=== PATIENT | male | born 1965 | race African-American/Black ===

== ENCOUNTER 2018-11-15 14:48 | Emergency (ER) | payer OTHER, SELFPAY ==
[2018-11-15] MEDS ORDERED: Acetaminophen 325 MG TAB ONE (17:01)
--- NOTE | 2018-11-15 17:16 | RAD ---
PA VIEW OF THE CHEST WITH 3 VIEWS OF THE LEFT CHEST WALL: INDICATION: Left-sided rib pain last night after laying on the left side. FINDINGS: There are nondisplaced lateral left 8th and 9th rib fractures. There is a suspected nondisplaced lef t lateral 10th rib fracture. There is healed fracture deformity involving the posterior left 11th, 1 0th, and 9th ribs. There are healing rib fractures involving the anterior 3rd through 6th ribs anter olaterally. The left lung demonstrates some mild left basilar atelectasis. No definite contusion or pneumothorax is evident. There is mild right basilar atelectasis also present. Heart size is karl l. IMPRESSION: 1. Nondisplaced acute anterolateral left 8th, 9th, and 10th rib fractures. Healing rib deformities involving the anterolateral left 3rd through 6th ribs. There is healed fracture deformity involving the posterolateral left 9th through 11th ribs. 2. Bibasilar atelectasis. POS: [facility]
== END 2018-11-15 17:32 | disposition home or self-care (01) ==
LOC: ERS 14:48
DX: S22.42XA Multiple fractures of ribs, left side, initial encounter for closed fracture (principal); W19.XXXA Unspecified fall, initial encounter

== ENCOUNTER 2021-02-15 23:28 | Emergency (ER) | payer OTHER, MEDICAID | END 2021-02-16 06:20 | disposition home or self-care (01) | LOC: ERS 23:28 | DX: Z04.3 Encounter for examination and observation following other accident (principal) | CPT/HCPCS: 70450; 72125 ==

== ENCOUNTER 2021-06-20 10:11 | Day surgery (SDC) | payer MEDICAID ==
[2021-06-19 09:20] VITALS: BMI 22.2
[2021-06-20] MEDS ORDERED: Fentanyl 100 MCG/2 ML VIAL ONE (11:50)
[2021-06-20] MEDS ORDERED: ceFAZolin 2 GM/DEX 5% 100 ML BAG ONE (12:13)
[2021-06-20] MEDS ORDERED: Ampicillin 2 GM VIAL ONE (12:13)
[2021-06-20] MEDS ORDERED: PROPOFOL 200 MG/20 ML VIAL ONE (12:27)
[2021-06-20] MEDS ORDERED: Ondansetron PF 4 MG/2 ML Vial ONE (12:27)
[2021-06-20] MEDS ORDERED: Glycopyrrolate 0.2 MG/ML 5 ML SYRINGE ONE (12:27)
[2021-06-20] MEDS ORDERED: Rocuronium Bromide 10 MG/ML (10ML VIAL) ONE (12:27)
== END 2021-06-20 15:45 | disposition home or self-care (01) ==
LOC: SDC 10:11
PROVIDERS: ATTEND Orthopaedic Surgery
PROC: 0YP90YZ Removal of Other Device from Right Lower Extremity, Open Approach (ICD-10-PCS; principal; 2021-06-20)
DX: S82.891D Other fracture of right lower leg, subsequent encounter for closed fracture with routine healing (principal); Z79.01 Long term (current) use of anticoagulants; Z79.899 Other long term (current) drug therapy
CPT/HCPCS: 76000; 87070; 87077; 87186; 87205; J0290; J2405; J2704; J3010

== ENCOUNTER 2021-08-24 19:20 | Inpatient (IN) | payer MEDICAID, OTHER ==
[2021-08-24 19:43] LABS: #Eosinphils 0.2 thou/uL (0.0-0.7); #Lymphocytes 1.8 thou/uL (1.20-3.40); #Monocytes 1.6 thou/uL (0.11-0.59); #Neutrophils 8.7 thou/uL (1.40-6.50); %Basophils 0.1 % (0.0-1.0); %Eosinophils 1.5 % (0.0-10.0); %Lymphocytes 14.3 % (21.0-51.0); %Monocytes 13.2 % (0.0-10.0); %Neutrophils 70.9 % (42.0-75.0); Mean Corpuscular HGB CONC 34.1 g/dL (32.0-36.0); Mean Corpuscular Hemoglobin 31.5 pg (27.0-31.0); Mean Corpuscular Volume 92.5 fL (78.0-98.0); Platelet Count 230 thou/uL (130-400); RBC Distribution Width 13.3 % (11.5-14.5); Red Blood Cell (RBC) Count 4.11 mill/uL (4.70-6.10); White Blood Cell (WBC) Count 12.3 thou/uL (4.8-10.8)
[2021-08-24] MEDS ORDERED: Vancomycin 1 GM/200 ML BAG ONE (19:47)
[2021-08-24] MEDS ORDERED: Acetaminophen 650 MG Suppository ONE (19:48)
[2021-08-24 19:55] LABS: INR-International Normal Ratio 1.3; Prothrombin Time 16.4 sec (12.0-14.7)
[2021-08-24 19:56] LABS: ALT (SGPT) 34 U/L (8-55); AST (SGOT) 24 U/L (5-34); Albumin 3.9 g/dL (3.5-5.0); Alkaline Phosphatase 117 U/L (40-110); Anion Gap 13 mmol/L (10-20); BUN (Urea Nitrogen) 16 mg/dL (8.4-25.7); Bilirubin, Total 0.6 mg/dL (0.2-1.2); Calc. Creatinine Clearance 0 mL/min (70-130); Calcium 9.9 mg/dL (7.8-10.44); Carbon Dioxide 29 mmol/L (22-29); Chloride 105 mmol/L (98-107); Globulin 3.8 g/dL (2.4-3.5); Glucose 95 mg/dL (70-105); Potassium 3.8 mmol/L (3.5-5.1); Protein, Total 7.7 g/dL (6.0-8.3); Sodium 143 mmol/L (136-145)
[2021-08-24 20:00] LABS: Bilirubin Negative (Negative); Blood, Urine Negative (Negative); Clarity Turbid (Clear); Glucose, Urine (Dipstick) Normal (Negative); Ketone, Urine Trace mg/dL (Negative); Leukocyte 75 Leu/uL (Negative); Nitrite Negative (Negative); Protein, Urine (Dipstick) 20 mg/dL (Neg-Trace); RBC/HPF 0-3 HPF (0-3); Specific Gravity, Urine 1.023 (1.002-1.036); Squamous Epithelial None Seen HPF (0-3); pH, Urine 6.5 (5.0-9.0)
[2021-08-24 20:10] LABS: Bacteria/HPF 3+ HPF (None Seen); WBC/HPF 0-3 HPF (0-3)
[2021-08-24] MEDS ORDERED: Cefepime 2 GM VIAL ONE (21:09)
[2021-08-24] MEDS ORDERED: Acetaminophen 325 MG TAB PER TUBE PRN (21:17)
[2021-08-24] MEDS ORDERED: Lactated Ringer's 1,000 ML IV SCH (22:00)
[2021-08-24] MEDS ORDERED: Piperacillin/Tazobactam 3.375 GM in Sodium Chloride 0.9% 100 ML IVPB SCH ×2 (22:30→23:59)
[2021-08-25] MEDS ORDERED: Piperacillin/Tazobactam 3.375 GM VIAL ONE ×2 (01:53→09:43)
[2021-08-25] MEDS ORDERED: Acetaminophen/Codeine 30-300mg Tablet PER TUBE PRN (02:56)
[2021-08-25 07:04] LABS: Hemoglobin 11.5 g/dL (14.0-18.0); Mean Corpuscular HGB CONC 34.1 g/dL (32.0-36.0); Mean Corpuscular Hemoglobin 31.5 pg (27.0-31.0); Mean Corpuscular Volume 92.3 fL (78.0-98.0); Platelet Count 215 thou/uL (130-400); RBC Distribution Width 13.2 % (11.5-14.5); Red Blood Cell (RBC) Count 3.64 mill/uL (4.70-6.10)
[2021-08-25 08:01] LABS: Anion Gap 16 mmol/L (10-20); BUN (Urea Nitrogen) 13 mg/dL (8.4-25.7); Calc. Creatinine Clearance 118 mL/min (70-130); Calcium 9.6 mg/dL (7.8-10.44); Carbon Dioxide 23 mmol/L (22-29); Chloride 107 mmol/L (98-107); Glucose 108 mg/dL (70-105); Potassium 3.8 mmol/L (3.5-5.1); Sodium 142 mmol/L (136-145)
[2021-08-25 08:02] LABS: Band 16 % (5-11); Eosinophils 1 % (0-10); Lymphocytes 15 % (21-51); MDiff Complete? YES; Monocytes 10 % (0-10); Neutrophil 58 % (42-75); Platelet Morphology Comment Appears Adequate
[2021-08-25] MEDS ORDERED: Saccharomyces boulardii 250 MG CAP PER TUBE SCH (09:00)
[2021-08-25] MEDS ORDERED: Famotidine/PF 20 mg/2ml Vial ONE (09:43)
[2021-08-25] MEDS: Piperacillin/Tazobactam 3.375 GM in Sodium Chloride 0.9% 100 ML IVPB SCH ×3 (10:06→20:49)
[2021-08-25] MEDS ORDERED: Vancomycin 1 GM/200 ML BAG ONE (10:09)
[2021-08-25] MEDS: Lactated Ringer's 1,000 ML IV SCH ×3 (10:09→17:33)
[2021-08-25] MEDS: Vancomycin 1 GM in Premix Bag 1 BAG IVPB SCH ×2 (10:45→20:49)
[2021-08-25] MEDS: Floranex 1 GM Packet PER TUBE SCH (10:49)
[2021-08-25] MEDS: Apixaban 2.5 MG TAB PER TUBE SCH ×2 (10:50→20:57)
[2021-08-25] MEDS: Docusate Sodium 100 MG/10 ML UDCUP PER TUBE SCH ×2 (10:50→20:59)
[2021-08-25] MEDS: Famotidine/PF 20 mg/2ml Vial SLOW IVP SCH (10:51)
[2021-08-25] MEDS: Gabapentin 100 MG CAP PO SCH ×3 (10:52→20:57)
[2021-08-25] MEDS: Valproate Sodium 250 mg/5 ml UD Cup PER TUBE SCH (10:55)
[2021-08-25] MEDS ORDERED: Acetaminophen 325 MG/10.15 ML UDCUP ONE (10:57)
[2021-08-25] MEDS ORDERED: Naproxen 500 MG TAB ONE (11:18)
[2021-08-25] MEDS: Multivitamin W/ Minerals 1 TAB PER TUBE SCH (12:00)
[2021-08-25] MEDS: Naproxen 500 MG TAB PER TUBE SCH ×2 (12:00→20:58)
[2021-08-25] MEDS ORDERED: Multivitamin W/ Minerals 1 TAB ONE (12:09)
[2021-08-25 14:12] LABS: SARS-CoV-2 PCR by NAA Not Detected (NotDetected)
[2021-08-25] MEDS ORDERED: FLU VACC QS2021-22(6MOS UP)/PF 60 MCG/0.5 ML SYRINGE IM ONE (17:30)
[2021-08-25] MEDS ORDERED: Prevnar 13-Val Conj/PF 0.5 ML SYRINGE IM ONE (17:30)
[2021-08-25] MEDS: Baclofen 10 MG TAB PER TUBE SCH ×2 (17:33→20:57)
[2021-08-26] MEDS: Lactated Ringer's 1,000 ML IV SCH ×2 (03:43→17:24)
[2021-08-26] MEDS: Piperacillin/Tazobactam 3.375 GM in Sodium Chloride 0.9% 100 ML IVPB SCH ×3 (03:43→22:07)
[2021-08-26 05:09] LABS: #Eosinphils 0.6 thou/uL (0.0-0.7); #Lymphocytes 1.1 thou/uL (1.20-3.40); #Monocytes 0.9 thou/uL (0.11-0.59); #Neutrophils 5.2 thou/uL (1.40-6.50); %Basophils 0.4 % (0.0-1.0); %Lymphocytes 14.4 % (21.0-51.0); %Monocytes 11.6 % (0.0-10.0); %Neutrophils 65.6 % (42.0-75.0); Hemoglobin 10.4 g/dL (14.0-18.0); Mean Corpuscular HGB CONC 33.8 g/dL (32.0-36.0); Mean Corpuscular Hemoglobin 30.9 pg (27.0-31.0); Mean Corpuscular Volume 91.4 fL (78.0-98.0); Platelet Count 217 thou/uL (130-400); RBC Distribution Width 12.7 % (11.5-14.5); Red Blood Cell (RBC) Count 3.37 mill/uL (4.70-6.10); White Blood Cell (WBC) Count 7.9 thou/uL (4.8-10.8)
[2021-08-26 05:31] LABS: Anion Gap 11 mmol/L (10-20); BUN (Urea Nitrogen) 10 mg/dL (8.4-25.7); Calc. Creatinine Clearance 114 mL/min (70-130); Calcium 8.8 mg/dL (7.8-10.44); Carbon Dioxide 25 mmol/L (22-29); Chloride 106 mmol/L (98-107); Glucose 81 mg/dL (70-105); Potassium 3.4 mmol/L (3.5-5.1); Sodium 139 mmol/L (136-145)
[2021-08-26] MEDS: Apixaban 2.5 MG TAB PER TUBE SCH ×2 (09:11→22:07)
[2021-08-26] MEDS: Baclofen 10 MG TAB PER TUBE SCH ×3 (09:11→22:07)
[2021-08-26] MEDS: Gabapentin 100 MG CAP PO SCH ×3 (09:12→22:07)
[2021-08-26] MEDS: Multivitamin W/ Minerals 1 TAB PER TUBE SCH (09:12)
[2021-08-26] MEDS: Famotidine/PF 20 mg/2ml Vial SLOW IVP SCH (09:14)
[2021-08-26] MEDS: Naproxen 500 MG TAB PER TUBE SCH ×2 (09:15→22:07)
[2021-08-26] MEDS: Docusate Sodium 100 MG/10 ML UDCUP PER TUBE SCH ×2 (09:15→22:08)
[2021-08-26] MEDS: Floranex 1 GM Packet PER TUBE SCH (09:16)
[2021-08-26] MEDS: Valproate Sodium 250 mg/5 ml UD Cup PER TUBE SCH (09:17)
[2021-08-26] MEDS ORDERED: Non-Formulary Item 1 EACH (Acetaminophen [Acetaminophen Oral Solution] 160 MG/5 ML Bottle PER TUBE PRN (09:37)
[2021-08-26] MEDS ORDERED: Acetaminophen/Codeine 30-300mg Tablet PER TUBE PRN (09:37)
[2021-08-26] MEDS ORDERED: Acetaminophen 650 MG/20.3 ML UDCUP PER TUBE PRN (09:41)
[2021-08-26 10:10] LABS: Vancomycin, Trough 9.1 ug/mL
[2021-08-26] MEDS: Vancomycin 1 GM in Premix Bag 1 BAG IVPB SCH (10:38)
[2021-08-26] MEDS: VANCOMYCIN 1.25 GM/250 ML BAG 1.25 GM in Premix Bag 1 BAG IVPB SCH ×2 (11:30→22:34)
[2021-08-27] MEDS: Lactated Ringer's 1,000 ML IV SCH ×2 (04:44→11:35)
[2021-08-27] MEDS: Piperacillin/Tazobactam 3.375 GM in Sodium Chloride 0.9% 100 ML IVPB SCH ×3 (04:44→21:19)
[2021-08-27 04:45] LABS: #Eosinphils 0.6 thou/uL (0.0-0.7); #Lymphocytes 1.1 thou/uL (1.20-3.40); #Monocytes 0.8 thou/uL (0.11-0.59); #Neutrophils 3.7 thou/uL (1.40-6.50); %Basophils 0.3 % (0.0-1.0); %Eosinophils 9.7 % (0.0-10.0); %Lymphocytes 17.8 % (21.0-51.0); %Monocytes 12.9 % (0.0-10.0); %Neutrophils 59.3 % (42.0-75.0); Hemoglobin 10.9 g/dL (14.0-18.0); Mean Corpuscular HGB CONC 34.5 g/dL (32.0-36.0); Mean Corpuscular Hemoglobin 31.6 pg (27.0-31.0); Mean Corpuscular Volume 91.6 fL (78.0-98.0); Platelet Count 244 thou/uL (130-400); RBC Distribution Width 12.7 % (11.5-14.5); Red Blood Cell (RBC) Count 3.43 mill/uL (4.70-6.10); White Blood Cell (WBC) Count 6.2 thou/uL (4.8-10.8)
[2021-08-27 05:12] LABS: Anion Gap 11 mmol/L (10-20); BUN (Urea Nitrogen) 11 mg/dL (8.4-25.7); Calc. Creatinine Clearance 124 mL/min (70-130); Calcium 8.5 mg/dL (7.8-10.44); Carbon Dioxide 25 mmol/L (22-29); Chloride 106 mmol/L (98-107); Glucose 80 mg/dL (70-105); Potassium 3.1 mmol/L (3.5-5.1); Sodium 139 mmol/L (136-145)
[2021-08-27] MEDS ORDERED: Potassium Chloride 40 MEQ in Premix Bag 1 BAG IVPB SCH (08:00)
[2021-08-27] MEDS: Apixaban 2.5 MG TAB PER TUBE SCH ×2 (09:41→21:18)
[2021-08-27] MEDS: Floranex 1 GM Packet PER TUBE SCH (09:41)
[2021-08-27] MEDS: Multivitamin W/ Minerals 1 TAB PER TUBE SCH (09:41)
[2021-08-27] MEDS: Baclofen 10 MG TAB PER TUBE SCH ×3 (09:41→21:16)
[2021-08-27] MEDS: Naproxen 500 MG TAB PER TUBE SCH ×2 (09:42→21:15)
[2021-08-27] MEDS: Gabapentin 100 MG CAP PO SCH ×3 (09:44→21:16)
[2021-08-27] MEDS: Docusate Sodium 100 MG/10 ML UDCUP PER TUBE SCH ×2 (09:45→21:18)
[2021-08-27] MEDS: Famotidine/PF 20 mg/2ml Vial SLOW IVP SCH (09:45)
[2021-08-27] MEDS: Valproate Sodium 250 mg/5 ml UD Cup PER TUBE SCH (09:50)
[2021-08-27 22:53] LABS: Vancomycin, Trough 6.8 ug/mL
[2021-08-28] MEDS: Piperacillin/Tazobactam 3.375 GM in Sodium Chloride 0.9% 100 ML IVPB SCH ×2 (03:21→13:02)
[2021-08-28 04:58] LABS: Hemoglobin 11.6 g/dL (14.0-18.0); Mean Corpuscular HGB CONC 33.6 g/dL (32.0-36.0); Mean Corpuscular Hemoglobin 30.9 pg (27.0-31.0); Mean Corpuscular Volume 91.9 fL (78.0-98.0); Mean Platelet Volume 7.4 fL (7.4-10.4); Platelet Count 299 thou/uL (130-400); Red Blood Cell (RBC) Count 3.76 mill/uL (4.70-6.10); White Blood Cell (WBC) Count 5.7 thou/uL (4.8-10.8)
[2021-08-28 05:26] LABS: Anion Gap 12 mmol/L (10-20); BUN (Urea Nitrogen) 9 mg/dL (8.4-25.7); Calc. Creatinine Clearance 128 mL/min (70-130); Calcium 8.5 mg/dL (7.8-10.44); Carbon Dioxide 26 mmol/L (22-29); Chloride 106 mmol/L (98-107); Glucose 87 mg/dL (70-105); Potassium 3.5 mmol/L (3.5-5.1); Sodium 140 mmol/L (136-145)
[2021-08-28 06:48] LABS: Band 6 % (5-11); Eosinophils 9 % (0-10); Lymphocytes 30 % (21-51); MDiff Complete? YES; Monocytes 1 % (0-10); Neutrophil 54 % (42-75)
[2021-08-28] MEDS: Naproxen 500 MG TAB PER TUBE SCH (09:53)
[2021-08-28] MEDS: Famotidine/PF 20 mg/2ml Vial SLOW IVP SCH (09:53)
[2021-08-28] MEDS: Gabapentin 100 MG CAP PO SCH ×2 (09:53→15:37)
[2021-08-28] MEDS: Docusate Sodium 100 MG/10 ML UDCUP PER TUBE SCH (09:53)
[2021-08-28] MEDS: Apixaban 2.5 MG TAB PER TUBE SCH (09:53)
[2021-08-28] MEDS: Multivitamin W/ Minerals 1 TAB PER TUBE SCH (09:53)
[2021-08-28] MEDS: Floranex 1 GM Packet PER TUBE SCH (09:55)
[2021-08-28] MEDS: Valproate Sodium 250 mg/5 ml UD Cup PER TUBE SCH (09:55)
[2021-08-28] MEDS: Baclofen 10 MG TAB PER TUBE SCH ×2 (09:59→15:37)
[2021-08-28 12:16] VITALS: BMI 21.8
[2021-08-28 12:49] VITALS: BP 127/81; TEMP 98.4
[2021-08-28] MEDS ORDERED: Cephalexin 250 MG CAP PER TUBE SCH (18:00)
[2021-08-28] MEDS ORDERED: Cephalexin 250 MG/5 ML Oral Suspension PER TUBE SCH (18:00)
== END 2021-08-28 15:40 | DRG 872 ==
LOC: ERS 19:20 → ERHOLD 21:08 → 2NO 21:11
PROVIDERS: ADMIT Family Medicine; ATTEND Family Medicine
DX: A41.9 Sepsis, unspecified organism (principal); N39.0 Urinary tract infection, site not specified; I69.254 Hemiplegia and hemiparesis following other nontraumatic intracranial hemorrhage affecting left non-dominant side; Z20.822 Contact with and (suspected) exposure to COVID-19; G89.4 Chronic pain syndrome; R13.10 Dysphagia, unspecified; F41.9 Anxiety disorder, unspecified; E87.6 Hypokalemia; S82.842A Displaced bimalleolar fracture of left lower leg, initial encounter for closed fracture; X58.XXXA Exposure to other specified factors, initial encounter; D64.9 Anemia, unspecified; Z79.01 Long term (current) use of anticoagulants; I69.291 Dysphagia following other nontraumatic intracranial hemorrhage; Z79.899 Other long term (current) drug therapy
CPT/HCPCS: 36415; 71045; 80048; 80053; 80202; 81003; 81015; 83605; 84145; 84484; 85025; 85610; 85730; 87040; 87077; 87086; 87804; 93005; 94760; 96365; 96367; J0692; J2543; J3370; J3480; J3490; J7120; S0028; U0003; U0005

== ENCOUNTER 2022-04-04 12:24 | Emergency (ER) | payer OTHER ==
[2022-04-04] MEDS ORDERED: GASTROGRAFIN 30 ML BOT ONE (14:07)
== END 2022-04-04 15:15 ==
LOC: ERS 12:24
DX: T85.528A Displacement of other gastrointestinal prosthetic devices, implants and grafts, initial encounter (principal)
CPT/HCPCS: 43762; 74018; Q9963

== ENCOUNTER 2022-04-05 19:27 | Emergency (ER) | payer OTHER | END 2022-04-05 21:09 | LOC: ERS 19:27 | DX: K94.23 Gastrostomy malfunction (principal) | CPT/HCPCS: 43762 ==

== ENCOUNTER 2022-04-06 21:55 | Emergency (ER) | payer OTHER ==
[2022-04-06 22:39] LABS: #Eosinphils 0.3 thou/uL (0.0-0.7); #Lymphocytes 1.5 thou/uL (1.20-3.40); #Neutrophils 4.1 thou/uL (1.40-6.50); %Basophils 0.6 % (0.0-1.0); %Lymphocytes 22.3 % (21.0-51.0); Hemoglobin 13.8 g/dL (14.0-18.0); Mean Corpuscular HGB CONC 32.6 g/dL (32.0-36.0); Mean Corpuscular Hemoglobin 30.1 pg (27.0-31.0); Mean Corpuscular Volume 92.3 fL (78.0-98.0); Mean Platelet Volume 8.6 fL (7.4-10.4); Platelet Count 266 thou/uL (130-400); RBC Distribution Width 14.3 % (11.5-14.5); Red Blood Cell (RBC) Count 4.59 mill/uL (4.70-6.10); White Blood Cell (WBC) Count 6.9 thou/uL (4.8-10.8)
[2022-04-06 22:54] LABS: Bacteria/HPF 3+ HPF (None Seen); Bilirubin Negative (Negative); Blood, Urine 3+ (Negative); Clarity Extra Turbid (Clear); Glucose, Urine (Dipstick) Normal (Negative); Ketone, Urine 10 mg/dL (Negative); Leukocyte 500 Leu/uL (Negative); Nitrite Negative (Negative); Protein, Urine (Dipstick) 70 mg/dL (Neg-Trace); RBC/HPF Greater than 50 HPF (0-3); Specific Gravity, Urine 1.021 (1.002-1.036); Squamous Epithelial None Seen HPF (0-3); WBC/HPF Greater than 50 HPF (0-3); pH, Urine 6.5 (5.0-9.0)
[2022-04-06 23:00] LABS: ALT (SGPT) 40 U/L (8-55); AST (SGOT) 50 U/L (5-34); Albumin 3.8 g/dL (3.5-5.0); Alkaline Phosphatase 136 U/L (40-110); Anion Gap 17 mmol/L (10-20); BUN (Urea Nitrogen) 18 mg/dL (8.4-25.7); Bilirubin, Total 0.4 mg/dL (0.2-1.2); Calc. Creatinine Clearance 0 mL/min (70-130); Calcium 9.5 mg/dL (7.8-10.44); Carbon Dioxide 24 mmol/L (22-29); Chloride 103 mmol/L (98-107); Estimated GFR 112; Globulin 3.8 g/dL (2.4-3.5); Glucose 100 mg/dL (70-105); Potassium 4.5 mmol/L (3.5-5.1); Protein, Total 7.6 g/dL (6.0-8.3); Sodium 139 mmol/L (136-145)
[2022-04-06] MEDS ORDERED: cefTRIAXone\\ROCEPHIN 2 GM VIAL ONE (23:07)
== END 2022-04-07 03:46 ==
LOC: ERS 21:55
DX: N39.0 Urinary tract infection, site not specified (principal); R31.9 Hematuria, unspecified
CPT/HCPCS: 80053; 81003; 81015; 83605; 85025; 87077; 87086; J0696

== ENCOUNTER 2022-05-11 20:43 | Inpatient (IN) | payer OTHER ==
[2022-05-11 21:45] LABS: #Basophils 0.1 thou/uL (0.0-0.2); #Eosinphils 0.2 thou/uL (0.0-0.7); #Lymphocytes 2.2 thou/uL (1.20-3.40); #Monocytes 1.7 thou/uL (0.11-0.59); #Neutrophils 8.9 thou/uL (1.40-6.50); %Basophils 0.5 % (0.0-1.0); %Eosinophils 1.9 % (0.0-10.0); %Monocytes 12.9 % (0.0-10.0); %Neutrophils 67.8 % (42.0-75.0); Hemoglobin 9.6 g/dL (14.0-18.0); Mean Corpuscular HGB CONC 33.8 g/dL (32.0-36.0); Mean Corpuscular Hemoglobin 30.4 pg (27.0-31.0); Mean Platelet Volume 7.8 fL (7.4-10.4); Platelet Count 387 thou/uL (130-400); RBC Distribution Width 14.2 % (11.5-14.5); Red Blood Cell (RBC) Count 3.15 mill/uL (4.70-6.10); White Blood Cell (WBC) Count 13.1 thou/uL (4.8-10.8)
[2022-05-11] MEDS ORDERED: Cefepime 2 GM VIAL ONE (21:51)
[2022-05-11] MEDS ORDERED: Pantoprazole 40 MG VIAL ONE (21:51)
[2022-05-11 21:57] LABS: INR-International Normal Ratio 1.4; Prothrombin Time 17.8 sec (12.0-14.7)
[2022-05-11 21:58] LABS: PTT 31.9 sec (22.9-36.1)
[2022-05-11 22:07] LABS: ALT (SGPT) 16 U/L (8-55); AST (SGOT) 19 U/L (5-34); Albumin 3.7 g/dL (3.5-5.0); Alkaline Phosphatase 115 U/L (40-110); Anion Gap 21 mmol/L (10-20); BUN (Urea Nitrogen) 49 mg/dL (8.4-25.7); Bilirubin, Total 0.4 mg/dL (0.2-1.2); Calc. Creatinine Clearance 0 mL/min (70-130); Carbon Dioxide 18 mmol/L (22-29); Chloride 98 mmol/L (98-107); Estimated GFR 81; Globulin 3.3 g/dL (2.4-3.5); Glucose 119 mg/dL (70-105); Lipase 36 U/L (8-78); Magnesium 1.9 mg/dL (1.6-2.6); Potassium 4.4 mmol/L (3.5-5.1); Sodium 133 mmol/L (136-145)
[2022-05-11] MEDS ORDERED: Vancomycin 1 GM/200 ML BAG ONE (22:27)
[2022-05-11] MEDS ORDERED: Norepinephrine 4 MG/4 ML VIAL ONE (23:39)
[2022-05-11 23:46] LABS: Bilirubin Negative (Negative); Blood, Urine 3+ (Negative); Clarity Extra Turbid (Clear); Glucose, Urine (Dipstick) Normal (Negative); Ketone, Urine 10 mg/dL (Negative); Leukocyte 500 Leu/uL (Negative); Nitrite Negative (Negative); Protein, Urine (Dipstick) 30 mg/dL (Neg-Trace); Specific Gravity, Urine 1.022 (1.002-1.036); Squamous Epithelial None Seen HPF (0-3)
[2022-05-11 23:54] LABS: Bacteria/HPF 2+ HPF (None Seen)
[2022-05-12] MEDS ORDERED: Ondansetron ODT 4 MG TAB SL PRN (00:15)
[2022-05-12] MEDS ORDERED: Ondansetron PF 4 MG/2 ML Vial IVP PRN (00:15)
[2022-05-12] MEDS ORDERED: Acetaminophen 325 MG TAB PO PRN (00:15)
[2022-05-12] MEDS ORDERED: NOREPINEPHRINE 8 MG/250 ML-D5W 250 ML IVPB SCH (00:15)
[2022-05-12 00:22] LABS: SARS-CoV-2 NAA Rapid Test Not Detected (NotDetected)
[2022-05-12] MEDS ORDERED: NOREPINEPHRINE 8 MG/250 ML-D5W 250 ML IVPB PRN (00:23)
[2022-05-12 00:39] LABS: Lactic Acid 2.1 mmol/L (0.5-2.2)
[2022-05-12] MEDS ORDERED: Pantoprazole 80 MG in Sodium Chloride 0.9% 100 ML IVPB SCH (00:45)
[2022-05-12] MEDS ORDERED: Acetaminophen/Codeine 30-300mg Tablet PER TUBE PRN (00:54)
[2022-05-12] MEDS ORDERED: Acetaminophen 500 MG TAB PER TUBE PRN (01:02)
[2022-05-12 01:44] LABS: Troponin I 0.019 ng/mL (< 0.028)
[2022-05-12] MEDS: Lactated Ringer's 1,000 ML IV SCH ×3 (03:02→23:12)
[2022-05-12 07:04] LABS: #Lymphocytes 1.5 thou/uL (1.20-3.40); #Monocytes 1.4 thou/uL (0.11-0.59); #Neutrophils 8.9 thou/uL (1.40-6.50); %Basophils 0.2 % (0.0-1.0); %Eosinophils 0.2 % (0.0-10.0); %Lymphocytes 12.7 % (21.0-51.0); %Neutrophils 74.8 % (42.0-75.0); Hemoglobin 8.1 g/dL (14.0-18.0); Mean Corpuscular HGB CONC 33.5 g/dL (32.0-36.0); Mean Corpuscular Hemoglobin 29.5 pg (27.0-31.0); Mean Platelet Volume 7.4 fL (7.4-10.4); Platelet Count 294 thou/uL (130-400); RBC Distribution Width 14.4 % (11.5-14.5); Red Blood Cell (RBC) Count 2.73 mill/uL (4.70-6.10); White Blood Cell (WBC) Count 11.9 thou/uL (4.8-10.8)
[2022-05-12 07:25] LABS: Anion Gap 15 mmol/L (10-20); BUN (Urea Nitrogen) 33 mg/dL (8.4-25.7); Calc. Creatinine Clearance 103 mL/min (70-130); Calcium 8.5 mg/dL (7.8-10.44); Carbon Dioxide 22 mmol/L (22-29); Chloride 102 mmol/L (98-107); Estimated GFR 108; Glucose 112 mg/dL (70-105); Potassium 4.2 mmol/L (3.5-5.1); Sodium 135 mmol/L (136-145)
[2022-05-12 07:30] LABS: Troponin I 0.016 ng/mL (< 0.028)
[2022-05-12] MEDS: Gabapentin 100 MG CAP PER TUBE SCH ×3 (08:44→20:33)
[2022-05-12] MEDS: Baclofen 10 MG TAB PER TUBE SCH ×3 (08:44→20:33)
[2022-05-12] MEDS: Floranex 1 GM Packet PER TUBE SCH (08:44)
[2022-05-12] MEDS: Valproate Sodium 250 mg/5 ml UD Cup PER TUBE SCH (08:45)
[2022-05-12] MEDS: Multivits W-Minerals Liquid 15 ML LIQ PER TUBE SCH (08:45)
[2022-05-12] MEDS: Docusate Sodium 100 MG/10 ML UDCUP PER TUBE SCH ×2 (08:46→20:32)
[2022-05-12] MEDS: Cefepime 2 GM in Sodium Chloride 0.9% 100 ML IVPB SCH ×2 (09:02→20:34)
[2022-05-12] MEDS: Vancomycin HCl 750 MG in Sodium Chloride 0.9% 250 ML 250 ML IVPB SCH ×2 (10:08→23:11)
[2022-05-12] MEDS ORDERED: GASTROGRAFIN 30 ML BOT ONE (11:21)
[2022-05-12] MEDS ORDERED: Iopamidol-370 76% 500 ML 1 ML ONE (11:21)
[2022-05-13 03:39] LABS: Band 2 % (5-11); Hemoglobin 5.8 g/dL (14.0-18.0); Hypochromia SLIGHT = 6-15 cells (100X) (0-5/hpf); Lymphocytes 25 % (21-51); MDiff Complete? YES; Mean Corpuscular HGB CONC 33.9 g/dL (32.0-36.0); Mean Corpuscular Hemoglobin 30.3 pg (27.0-31.0); Mean Corpuscular Volume 89.5 fL (78.0-98.0); Mean Platelet Volume 6.9 fL (7.4-10.4); Monocytes 9 % (0-10); Neutrophil 64 % (42-75); Platelet Count 204 thou/uL (130-400); Platelet Morphology Comment Appears Adequate; RBC Distribution Width 14.5 % (11.5-14.5); Red Blood Cell (RBC) Count 1.91 mill/uL (4.70-6.10); White Blood Cell (WBC) Count 8.5 thou/uL (4.8-10.8)
[2022-05-13] MEDS ORDERED: Pantoprazole 80 MG in Sodium Chloride 0.9% 100 ML IVPB SCH (03:45)
[2022-05-13 04:01] LABS: Anion Gap 11 mmol/L (10-20); BUN (Urea Nitrogen) 12 mg/dL (8.4-25.7); Calc. Creatinine Clearance 121 mL/min (70-130); Calcium 8.2 mg/dL (7.8-10.44); Carbon Dioxide 25 mmol/L (22-29); Chloride 107 mmol/L (98-107); Estimated GFR 113; Glucose 92 mg/dL (70-105); Potassium 3.9 mmol/L (3.5-5.1); Sodium 139 mmol/L (136-145)
[2022-05-13] MEDS: Multivits W-Minerals Liquid 15 ML LIQ PER TUBE SCH (08:20)
[2022-05-13] MEDS: Baclofen 10 MG TAB PER TUBE SCH ×3 (08:20→21:43)
[2022-05-13] MEDS: Floranex 1 GM Packet PER TUBE SCH (08:20)
[2022-05-13] MEDS: Gabapentin 100 MG CAP PER TUBE SCH ×3 (08:20→21:43)
[2022-05-13] MEDS: Docusate Sodium 100 MG/10 ML UDCUP PER TUBE SCH ×2 (08:21→21:43)
[2022-05-13] MEDS: Valproate Sodium 250 mg/5 ml UD Cup PER TUBE SCH (08:21)
[2022-05-13 08:58] LABS: Hemoglobin 6.8 g/dL (14.0-18.0); Platelet Count 223 thou/uL (130-400)
[2022-05-13] MEDS ORDERED: Lansoprazole 3 MG/ML ORAL SUSPENSION PER TUBE SCH (09:00)
[2022-05-13] MEDS ORDERED: Enoxaparin Sodium 40 MG/0.4 ML SYRINGE SC SCH (09:00)
[2022-05-13] MEDS: Lactated Ringer's 1,000 ML IV SCH ×2 (09:02→21:42)
[2022-05-13] MEDS: Cefepime 2 GM in Sodium Chloride 0.9% 100 ML IVPB SCH ×2 (09:02→22:45)
[2022-05-13] MEDS: Vancomycin HCl 750 MG in Sodium Chloride 0.9% 250 ML 250 ML IVPB SCH (09:02)
[2022-05-13 11:15] VITALS: BMI 25.0
[2022-05-13] MEDS: Pantoprazole 80 MG, Admixture Fee 1 EACH in Sodium Chloride 0.9% 100 ML IVPB SCH ×2 (13:13→22:46)
[2022-05-13] MEDS ORDERED: Haloperidol Lactate 5 MG/ML VIAL IM SCH (13:30)
[2022-05-13 18:43] LABS: Platelet Count 207 thou/uL (130-400)
[2022-05-13] MEDS ORDERED: Lactated Ringer's 500 ML IV SCH (21:00)
[2022-05-13] MEDS: Vancomycin 1 GM in Premix Bag 1 BAG IVPB SCH (21:44)
[2022-05-14 05:06] LABS: #Eosinphils 0.3 thou/uL (0.0-0.7); #Lymphocytes 1.5 thou/uL (1.20-3.40); #Monocytes 0.9 thou/uL (0.11-0.59); #Neutrophils 3.9 thou/uL (1.40-6.50); %Basophils 0.5 % (0.0-1.0); %Eosinophils 5.1 % (0.0-10.0); %Neutrophils 58.4 % (42.0-75.0); Hemoglobin 7.9 g/dL (14.0-18.0); Mean Corpuscular HGB CONC 34.6 g/dL (32.0-36.0); Mean Corpuscular Volume 86.5 fL (78.0-98.0); Mean Platelet Volume 7.3 fL (7.4-10.4); Platelet Count 209 thou/uL (130-400); Red Blood Cell (RBC) Count 2.63 mill/uL (4.70-6.10); White Blood Cell (WBC) Count 6.7 thou/uL (4.8-10.8)
[2022-05-14 05:18] LABS: Anion Gap 10 mmol/L (10-20); BUN (Urea Nitrogen) 4 mg/dL (8.4-25.7); Calc. Creatinine Clearance 144 mL/min (70-130); Carbon Dioxide 25 mmol/L (22-29); Chloride 107 mmol/L (98-107); Estimated GFR 119; Glucose 90 mg/dL (70-105); Potassium 3.3 mmol/L (3.5-5.1); Sodium 139 mmol/L (136-145)
[2022-05-14] MEDS: Potassium Chloride 20 MEQ in Premix Bag 1 BAG IVPB SCH ×2 (05:42→08:58)
[2022-05-14] MEDS: Lactated Ringer's 1,000 ML IV SCH (08:58)
[2022-05-14] MEDS: Vancomycin 1 GM in Premix Bag 1 BAG IVPB SCH ×2 (09:34→20:30)
[2022-05-14] MEDS: Multivits W-Minerals Liquid 15 ML LIQ PER TUBE SCH (09:35)
[2022-05-14] MEDS: Floranex 1 GM Packet PER TUBE SCH (09:35)
[2022-05-14] MEDS: Docusate Sodium 100 MG/10 ML UDCUP PER TUBE SCH ×2 (09:36→20:30)
[2022-05-14] MEDS: Valproate Sodium 250 mg/5 ml UD Cup PER TUBE SCH (09:36)
[2022-05-14] MEDS: Baclofen 10 MG TAB PER TUBE SCH ×3 (09:36→20:30)
[2022-05-14] MEDS: Gabapentin 100 MG CAP PER TUBE SCH ×3 (09:37→20:29)
[2022-05-14] MEDS: Pantoprazole 80 MG, Admixture Fee 1 EACH in Sodium Chloride 0.9% 100 ML IVPB SCH (09:40)
[2022-05-14] MEDS: Cefepime 2 GM in Sodium Chloride 0.9% 100 ML IVPB SCH ×2 (09:42→22:10)
[2022-05-14] MEDS: Pantoprazole 40 MG VIAL IVP SCH (20:30)
[2022-05-15 04:42] LABS: Anion Gap 12 mmol/L (10-20); BUN (Urea Nitrogen) Less than 4 mg/dL (8.4-25.7); Calc. Creatinine Clearance 126 mL/min (70-130); Calcium 8.7 mg/dL (7.8-10.44); Carbon Dioxide 25 mmol/L (22-29); Chloride 103 mmol/L (98-107); Estimated GFR 114; Glucose 98 mg/dL (70-105); Potassium 3.4 mmol/L (3.5-5.1); Sodium 137 mmol/L (136-145)
[2022-05-15 05:53] LABS: #Eosinphils 0.2 thou/uL (0.0-0.7); #Lymphocytes 1.3 thou/uL (1.20-3.40); #Neutrophils 5.5 thou/uL (1.40-6.50); %Basophils 0.3 % (0.0-1.0); %Monocytes 12.3 % (0.0-10.0); %Neutrophils 68.5 % (42.0-75.0); Hemoglobin 9.4 g/dL (14.0-18.0); Mean Corpuscular HGB CONC 33.7 g/dL (32.0-36.0); Mean Corpuscular Hemoglobin 29.5 pg (27.0-31.0); Mean Corpuscular Volume 87.5 fL (78.0-98.0); Mean Platelet Volume 7.3 fL (7.4-10.4); Platelet Count 312 thou/uL (130-400); RBC Distribution Width 15.1 % (11.5-14.5); White Blood Cell (WBC) Count 8.1 thou/uL (4.8-10.8)
[2022-05-15] MEDS ORDERED: VANCOMYCIN 1.25 GM/250 ML BAG 1.25 GM in Premix Bag 1 BAG IVPB SCH (09:00)
[2022-05-15] MEDS ORDERED: Potassium Chloride 20 MEQ in Premix Bag 1 BAG IVPB SCH (09:00)
[2022-05-15] MEDS: Pantoprazole 40 MG VIAL IVP SCH (09:29)
[2022-05-15] MEDS: Gabapentin 100 MG CAP PER TUBE SCH ×2 (09:30→14:23)
[2022-05-15] MEDS: Valproate Sodium 250 mg/5 ml UD Cup PER TUBE SCH (09:30)
[2022-05-15] MEDS: Docusate Sodium 100 MG/10 ML UDCUP PER TUBE SCH (09:30)
[2022-05-15] MEDS: Baclofen 10 MG TAB PER TUBE SCH ×2 (09:30→14:23)
[2022-05-15] MEDS: Multivits W-Minerals Liquid 15 ML LIQ PER TUBE SCH (09:30)
[2022-05-15] MEDS: Floranex 1 GM Packet PER TUBE SCH (09:31)
[2022-05-15] MEDS: Cefepime 2 GM in Sodium Chloride 0.9% 100 ML IVPB SCH (09:31)
[2022-05-15 17:17] VITALS: TEMP 99.2
== END 2022-05-15 18:10 | disposition home or self-care (01) | DRG 871 ==
LOC: ERS 20:43 → CCU 23:57 → IMCU/EMU 05-12 16:15
PROVIDERS: ADMIT Family Medicine; ATTEND Family Medicine
PROC: 02H633Z Insertion of Infusion Device into Right Atrium, Percutaneous Approach (ICD-10-PCS; principal; 2022-05-11)
PROC: 3E03329 Introduction of Other Anti-infective into Peripheral Vein, Percutaneous Approach (ICD-10-PCS; 2022-05-11)
PROC: 3E033XZ Introduction of Vasopressor into Peripheral Vein, Percutaneous Approach (ICD-10-PCS; 2022-05-12)
PROC: 30233N1 Transfusion of Nonautologous Red Blood Cells into Peripheral Vein, Percutaneous Approach (ICD-10-PCS; 2022-05-13)
DX: A41.9 Sepsis, unspecified organism (principal); G93.41 Metabolic encephalopathy; R65.21 Severe sepsis with septic shock; N39.0 Urinary tract infection, site not specified; E87.1 Hypo-osmolality and hyponatremia; G81.90 Hemiplegia, unspecified affecting unspecified side; F41.9 Anxiety disorder, unspecified; G89.4 Chronic pain syndrome; M85.859 Other specified disorders of bone density and structure, unspecified thigh; D63.8 Anemia in other chronic diseases classified elsewhere; K56.41 Fecal impaction; Z20.822 Contact with and (suspected) exposure to COVID-19; Z79.01 Long term (current) use of anticoagulants; Z79.899 Other long term (current) drug therapy
CPT/HCPCS: 36415; 36430; 36556; 51701; 71045; 72170; 74018; 74177; 80048; 80053; 80202; 81003; 81015; 82274; 83605; 83690; 83735; 83880; 83930; 83935; 84145; 84300; 84443; 84484; 85025; 85610; 85730; 86850; 86900; 86901; 87040; 87077; 87086; 87149; 93005; 94760; 96365; 96366; 96374; 96375; C9113; J0692; J3370; J3480; J3490; J7050; J7120; P9016; Q9963; Q9967; U0002

== ENCOUNTER 2022-06-24 05:45 | Inpatient (IN) | payer OTHER ==
[2022-06-24 07:21] LABS: #Basophils 0.1 thou/uL (0.0-0.2); #Eosinphils 0.1 thou/uL (0.0-0.7); #Lymphocytes 1.1 thou/uL (1.20-3.40); #Neutrophils 5.4 thou/uL (1.40-6.50); %Basophils 0.7 % (0.0-1.0); %Eosinophils 1.8 % (0.0-10.0); %Lymphocytes 14.3 % (21.0-51.0); %Monocytes 12.8 % (0.0-10.0); %Neutrophils 70.4 % (42.0-75.0); Hemoglobin 10.7 g/dL (14.0-18.0); Mean Corpuscular HGB CONC 32.3 g/dL (32.0-36.0); Mean Corpuscular Hemoglobin 27.9 pg (27.0-31.0); Mean Corpuscular Volume 86.4 fL (78.0-98.0); Platelet Count 416 thou/uL (130-400); RBC Distribution Width 15.6 % (11.5-14.5); Red Blood Cell (RBC) Count 3.83 mill/uL (4.70-6.10); White Blood Cell (WBC) Count 7.7 thou/uL (4.8-10.8)
[2022-06-24 07:31] LABS: ALT (SGPT) 19 U/L (8-55); AST (SGOT) 29 U/L (5-34); Albumin 3.3 g/dL (3.5-5.0); Alkaline Phosphatase 141 U/L (40-110); Anion Gap 17 mmol/L (10-20); BUN (Urea Nitrogen) 8 mg/dL (8.4-25.7); Bilirubin, Total 0.3 mg/dL (0.2-1.2); Calc. Creatinine Clearance 0 mL/min (70-130); Calcium 8.7 mg/dL (7.8-10.44); Carbon Dioxide 24 mmol/L (22-29); Chloride 102 mmol/L (98-107); Estimated GFR 118; Globulin 4.3 g/dL (2.4-3.5); Glucose 108 mg/dL (70-105); Potassium 4.4 mmol/L (3.5-5.1); Protein, Total 7.6 g/dL (6.0-8.3); Sodium 139 mmol/L (136-145)
[2022-06-24 09:13] LABS: SARS-CoV-2 NAA Rapid Test Not Detected (NotDetected)
[2022-06-24 09:29] LABS: Bilirubin Negative (Negative); Blood, Urine 1+ (Negative); Clarity Clear (Clear); Glucose, Urine (Dipstick) Normal (Negative); Ketone, Urine 10 mg/dL (Negative); Leukocyte Negative Leu/uL (Negative); Nitrite Negative (Negative); Protein, Urine (Dipstick) 20 mg/dL (Neg-Trace); RBC/HPF Greater than 50 HPF (0-3); Specific Gravity, Urine 1.041 (1.002-1.036); Squamous Epithelial None Seen HPF (0-3); WBC/HPF 0-3 HPF (0-3)
[2022-06-24 09:42] LABS: Bacteria/HPF Rare-Few HPF (None Seen)
[2022-06-24] MEDS ORDERED: Ondansetron PF 4 MG/2 ML Vial IVP PRN (11:04)
[2022-06-24] MEDS ORDERED: Ondansetron ODT 4 MG TAB PO PRN (11:04)
[2022-06-24] MEDS: Sodium Chloride 0.9% 1,000 ML IV SCH ×2 (13:30→20:42)
[2022-06-24] MEDS ORDERED: Acetaminophen 650 MG Suppository PR PRN (14:03)
[2022-06-24] MEDS ORDERED: Iopamidol-370 76% 500 ML 1 ML ONE (14:03)
[2022-06-24] MEDS ORDERED: FLU VACC QS2022-23(6MOS UP)/PF 60 MCG/0.5 ML SYRINGE IM ONE (15:00)
[2022-06-24] MEDS: Acetaminophen 325 MG Suppository PR PRN ×2 (15:19→23:55)
[2022-06-24] MEDS: Cefepime 1 GM in Sodium Chloride 0.9% 100 ML IVPB SCH (15:20)
[2022-06-24 15:34] LABS: Troponin I Less than 0.010 ng/mL (< 0.028)
[2022-06-24] MEDS ORDERED: Metoprolol Tartrate 5 MG/5 ML VIAL IVP SCH (17:13)
[2022-06-24] MEDS: VANCOMYCIN 1.25 GM/250 ML BAG 1.25 GM in Premix Bag 1 BAG IVPB SCH (18:01)
[2022-06-24] MEDS: Enoxaparin Sodium 40 MG/0.4 ML SYRINGE SC SCH (20:42)
[2022-06-25] MEDS: Cefepime 1 GM in Sodium Chloride 0.9% 100 ML IVPB SCH (03:33)
[2022-06-25] MEDS: Sodium Chloride 0.9% 1,000 ML IV SCH (03:34)
[2022-06-25] MEDS: VANCOMYCIN 1.25 GM/250 ML BAG 1.25 GM in Premix Bag 1 BAG IVPB SCH ×2 (04:55→17:09)
[2022-06-25 05:32] LABS: #Eosinphils 0.1 thou/uL (0.0-0.7); #Lymphocytes 1.5 thou/uL (1.20-3.40); #Neutrophils 5.3 thou/uL (1.40-6.50); %Eosinophils 1.5 % (0.0-10.0); %Lymphocytes 18.5 % (21.0-51.0); %Monocytes 12.8 % (0.0-10.0); %Neutrophils 67.2 % (42.0-75.0); Hemoglobin 8.9 g/dL (14.0-18.0); Mean Corpuscular HGB CONC 31.5 g/dL (32.0-36.0); Mean Corpuscular Hemoglobin 26.8 pg (27.0-31.0); Mean Corpuscular Volume 85.2 fL (78.0-98.0); Mean Platelet Volume 6.7 fL (7.4-10.4); Platelet Count 454 thou/uL (130-400); RBC Distribution Width 15.6 % (11.5-14.5); Red Blood Cell (RBC) Count 3.33 mill/uL (4.70-6.10); White Blood Cell (WBC) Count 7.9 thou/uL (4.8-10.8)
[2022-06-25 05:53] LABS: Anion Gap 12 mmol/L (10-20); BUN (Urea Nitrogen) 8 mg/dL (8.4-25.7); Calc. Creatinine Clearance 135 mL/min (70-130); Calcium 8.3 mg/dL (7.8-10.44); Carbon Dioxide 23 mmol/L (22-29); Chloride 110 mmol/L (98-107); Estimated GFR 118; Glucose 87 mg/dL (70-105); Potassium 3.8 mmol/L (3.5-5.1); Sodium 141 mmol/L (136-145)
[2022-06-25] MEDS: Pantoprazole 40 MG VIAL IVP SCH (09:03)
[2022-06-25] MEDS: Cefepime 2 GM in Sodium Chloride 0.9% 100 ML IVPB SCH (14:41)
[2022-06-25] MEDS ORDERED: Iopamidol-370 76% 500 ML 1 ML ONE (14:57)
[2022-06-25] MEDS: Enoxaparin Sodium 40 MG/0.4 ML SYRINGE SC SCH (20:52)
[2022-06-25] MEDS: Acetaminophen 325 MG TAB PO PRN (20:57)
[2022-06-25] MEDS: Dextrose 5 % And 0.9 % NaCl 1,000 ML IV SCH (23:34)
[2022-06-26] MEDS: Cefepime 2 GM in Sodium Chloride 0.9% 100 ML IVPB SCH ×2 (03:19→14:58)
[2022-06-26 05:28] LABS: Anion Gap 15 mmol/L (10-20); BUN (Urea Nitrogen) 5 mg/dL (8.4-25.7); Calc. Creatinine Clearance 127 mL/min (70-130); Calcium 8.5 mg/dL (7.8-10.44); Carbon Dioxide 22 mmol/L (22-29); Chloride 105 mmol/L (98-107); Estimated GFR 116; Glucose 77 mg/dL (70-105); Potassium 3.2 mmol/L (3.5-5.1); Sodium 139 mmol/L (136-145)
[2022-06-26] MEDS: VANCOMYCIN 1.25 GM/250 ML BAG 1.25 GM in Premix Bag 1 BAG IVPB SCH (05:35)
[2022-06-26 06:53] LABS: Hemoglobin 9.7 g/dL (14.0-18.0); Mean Corpuscular HGB CONC 31.4 g/dL (32.0-36.0); Mean Corpuscular Hemoglobin 26.6 pg (27.0-31.0); Mean Corpuscular Volume 84.9 fL (78.0-98.0); Mean Platelet Volume 6.8 fL (7.4-10.4); Platelet Count 421 thou/uL (130-400); RBC Distribution Width 15.7 % (11.5-14.5); Red Blood Cell (RBC) Count 3.63 mill/uL (4.70-6.10)
[2022-06-26] MEDS: Pantoprazole 40 MG VIAL IVP SCH (08:20)
[2022-06-26 08:44] LABS: Band 6 % (5-11); Eosinophils 1 % (0-10); Lymphocytes 15 % (21-51); MDiff Complete? YES; Monocytes 13 % (0-10); Neutrophil 65 % (42-75); Platelet Morphology Comment Appears Increased; Polychromasia SLIGHT = 2-3 cells (100X) (0-2/hpf)
[2022-06-26 10:35] VITALS: BMI 21.6
[2022-06-26] MEDS: Dextrose 5 % And 0.9 % NaCl 1,000 ML IV SCH ×2 (12:54→22:30)
[2022-06-26] MEDS: Vancomycin 1 GM in Premix Bag 1 BAG IVPB SCH ×2 (14:57→22:30)
[2022-06-26] MEDS ORDERED: Potassium Bicarbonate/Cit Ac 20 MEQ TAB PER TUBE SCH (18:45)
[2022-06-26] MEDS: Enoxaparin Sodium 40 MG/0.4 ML SYRINGE SC SCH (22:30)
[2022-06-27] MEDS: Cefepime 2 GM in Sodium Chloride 0.9% 100 ML IVPB SCH (04:04)
[2022-06-27] MEDS: Acetaminophen 325 MG TAB PO PRN (04:05)
[2022-06-27] MEDS: Vancomycin 1 GM in Premix Bag 1 BAG IVPB SCH (05:36)
[2022-06-27 06:24] LABS: #Eosinphils 0.1 thou/uL (0.0-0.7); #Lymphocytes 1.2 thou/uL (1.20-3.40); #Monocytes 1.1 thou/uL (0.11-0.59); #Neutrophils 6.8 thou/uL (1.40-6.50); %Basophils 0.2 % (0.0-1.0); %Eosinophils 1.5 % (0.0-10.0); %Lymphocytes 12.7 % (21.0-51.0); %Monocytes 12.2 % (0.0-10.0); %Neutrophils 73.4 % (42.0-75.0); Hemoglobin 8.8 g/dL (14.0-18.0); Mean Corpuscular HGB CONC 31.5 g/dL (32.0-36.0); Mean Corpuscular Hemoglobin 26.5 pg (27.0-31.0); Platelet Count 412 thou/uL (130-400); RBC Distribution Width 15.6 % (11.5-14.5); Red Blood Cell (RBC) Count 3.33 mill/uL (4.70-6.10); White Blood Cell (WBC) Count 9.3 thou/uL (4.8-10.8)
[2022-06-27 07:00] LABS: Anion Gap 9 mmol/L (10-20); BUN (Urea Nitrogen) 9 mg/dL (8.4-25.7); Calc. Creatinine Clearance 112 mL/min (70-130); Calcium 8.1 mg/dL (7.8-10.44); Carbon Dioxide 27 mmol/L (22-29); Chloride 98 mmol/L (98-107); Estimated GFR 112; Glucose 142 mg/dL (70-105); Potassium 3.2 mmol/L (3.5-5.1); Sodium 131 mmol/L (136-145)
[2022-06-27] MEDS: Pantoprazole 40 MG VIAL IVP SCH (08:21)
[2022-06-27] MEDS ORDERED: Potassium Chloride 20 MEQ TAB PO SCH (11:30)
[2022-06-27] MEDS ORDERED: Potassium Bicarbonate/Cit Ac 20 MEQ TAB PER TUBE SCH (11:35)
[2022-06-27] MEDS ORDERED: Piperacillin/Tazobactam 3.375 GM in Sodium Chloride 0.9% 100 ML IVPB SCH ×2 (12:00→16:00)
[2022-06-27 12:03] LABS: Troponin I Less than 0.010 ng/mL (< 0.028)
[2022-06-27 12:52] LABS: Vancomycin, Trough 25.3 ug/mL
[2022-06-27] MEDS ORDERED: Piperacillin/Tazobactam 4.5 GM in Sodium Chloride 0.9% 100 ML IVPB SCH (14:00)
[2022-06-27] MEDS: Vancomycin 1.5 GRAM/300 ML BAG 1.5 GM in Premix Bag 1 BAG IVPB SCH (18:29)
[2022-06-27] MEDS: Piperacillin/Tazobactam 3.375 GM in Sodium Chloride 0.9% 100 ML IVPB SCH (21:25)
[2022-06-27] MEDS: Enoxaparin Sodium 40 MG/0.4 ML SYRINGE SC SCH (21:25)
[2022-06-27] MEDS: Morphine 4 MG/ML VIAL SLOW IVP PRN (22:39)
[2022-06-28] MEDS: Acetaminophen 325 MG TAB PO PRN ×2 (04:17→21:40)
[2022-06-28] MEDS: Piperacillin/Tazobactam 3.375 GM in Sodium Chloride 0.9% 100 ML IVPB SCH ×3 (04:18→21:41)
[2022-06-28] MEDS: Vancomycin 1.5 GRAM/300 ML BAG 1.5 GM in Premix Bag 1 BAG IVPB SCH ×2 (05:46→17:32)
[2022-06-28] MEDS: Pantoprazole 40 MG VIAL IVP SCH (08:03)
[2022-06-28] MEDS: Morphine 4 MG/ML VIAL SLOW IVP PRN ×2 (12:38→22:48)
[2022-06-28 18:56] LABS: #Eosinphils 0.4 thou/uL (0.0-0.7); #Lymphocytes 1.4 thou/uL (1.20-3.40); #Monocytes 0.9 thou/uL (0.11-0.59); #Neutrophils 5.3 thou/uL (1.40-6.50); %Basophils 0.2 % (0.0-1.0); %Eosinophils 4.5 % (0.0-10.0); %Lymphocytes 17.5 % (21.0-51.0); %Monocytes 11.7 % (0.0-10.0); Hemoglobin 9.5 g/dL (14.0-18.0); Mean Corpuscular HGB CONC 31.4 g/dL (32.0-36.0); Mean Corpuscular Hemoglobin 27.1 pg (27.0-31.0); Mean Corpuscular Volume 86.2 fL (78.0-98.0); Mean Platelet Volume 6.6 fL (7.4-10.4); Platelet Count 443 thou/uL (130-400); RBC Distribution Width 15.4 % (11.5-14.5); Red Blood Cell (RBC) Count 3.51 mill/uL (4.70-6.10)
[2022-06-28 19:03] LABS: Actual Bicarbonate (HCO3v) 27 mEq/L (22-28); Base Excess 2.9 mEq/L (-2.0 to +3.0); Calcium, Ionized (venous) 1.05 mmol/L (1.16-1.32); Chloride (VBG) 98 mmol/L (98-106); Hemoglobin (Hb) 10.1 g/dL (13.1-17.2); Potassium (VBG) 4.14 mmol/L (3.70-5.30); Sodium 133.3 mmol/L (133-146); pH (venous) 7.47 (7.32-7.43)
[2022-06-28 19:19] LABS: ALT (SGPT) 17 U/L (8-55); AST (SGOT) 27 U/L (5-34); Alkaline Phosphatase 128 U/L (40-110); Anion Gap 12 mmol/L (10-20); BUN (Urea Nitrogen) 12 mg/dL (8.4-25.7); Bilirubin, Total 0.2 mg/dL (0.2-1.2); Calc. Creatinine Clearance 93 mL/min (70-130); Calcium 8.7 mg/dL (7.8-10.44); Carbon Dioxide 27 mmol/L (22-29); Chloride 99 mmol/L (98-107); Estimated GFR 106; Globulin 4.3 g/dL (2.4-3.5); Glucose 95 mg/dL (70-105); Magnesium 1.9 mg/dL (1.6-2.6); Potassium 4.2 mmol/L (3.5-5.1); Protein, Total 7.3 g/dL (6.0-8.3); Sodium 134 mmol/L (136-145)
[2022-06-28] MEDS: Enoxaparin Sodium 40 MG/0.4 ML SYRINGE SC SCH (21:39)
[2022-06-28] MEDS: Senokot S 8.6-50 MG TAB PER TUBE SCH (21:40)
[2022-06-29] MEDS: Piperacillin/Tazobactam 3.375 GM in Sodium Chloride 0.9% 100 ML IVPB SCH ×3 (03:56→21:04)
[2022-06-29 06:16] LABS: #Eosinphils 0.3 thou/uL (0.0-0.7); #Lymphocytes 1.3 thou/uL (1.20-3.40); #Neutrophils 5.7 thou/uL (1.40-6.50); %Basophils 0.3 % (0.0-1.0); %Eosinophils 3.7 % (0.0-10.0); %Lymphocytes 15.3 % (21.0-51.0); %Monocytes 11.9 % (0.0-10.0); %Neutrophils 68.8 % (42.0-75.0); Hemoglobin 8.8 g/dL (14.0-18.0); Mean Corpuscular HGB CONC 31.3 g/dL (32.0-36.0); Mean Corpuscular Hemoglobin 26.2 pg (27.0-31.0); Mean Corpuscular Volume 83.9 fL (78.0-98.0); Mean Platelet Volume 7.3 fL (7.4-10.4); Platelet Count 366 thou/uL (130-400); RBC Distribution Width 15.6 % (11.5-14.5); Red Blood Cell (RBC) Count 3.34 mill/uL (4.70-6.10); White Blood Cell (WBC) Count 8.3 thou/uL (4.8-10.8)
[2022-06-29 06:32] LABS: Vancomycin, Trough 22.3 ug/mL
[2022-06-29 06:33] LABS: ALT (SGPT) 15 U/L (8-55); AST (SGOT) 25 U/L (5-34); Albumin 2.8 g/dL (3.5-5.0); Alkaline Phosphatase 127 U/L (40-110); Anion Gap 14 mmol/L (10-20); BUN (Urea Nitrogen) 11 mg/dL (8.4-25.7); Bilirubin, Direct 0.2 mg/dL (0.1-0.3); Bilirubin, Total 0.3 mg/dL (0.2-1.2); Calc. Creatinine Clearance 100 mL/min (70-130); Calcium 8.6 mg/dL (7.8-10.44); Carbon Dioxide 22 mmol/L (22-29); Chloride 99 mmol/L (98-107); Estimated GFR 108; Glucose 107 mg/dL (70-105); Magnesium 1.8 mg/dL (1.6-2.6); Potassium 4.3 mmol/L (3.5-5.1); Protein, Total 6.8 g/dL (6.0-8.3); Sodium 131 mmol/L (136-145)
[2022-06-29] MEDS: Morphine 4 MG/ML VIAL SLOW IVP PRN ×4 (06:33→21:09)
[2022-06-29] MEDS: Vancomycin 1.5 GRAM/300 ML BAG 1.5 GM in Premix Bag 1 BAG IVPB SCH (07:42)
[2022-06-29] MEDS: VANCOMYCIN 1.25 GM/250 ML BAG 1.25 GM in Premix Bag 1 BAG IVPB SCH ×2 (09:22→22:17)
[2022-06-29] MEDS: Senokot S 8.6-50 MG TAB PER TUBE SCH ×2 (09:22→21:06)
[2022-06-29] MEDS: Pantoprazole 40 MG VIAL IVP SCH (09:22)
[2022-06-29] MEDS: Polyethylene Glycol 3350 17 GM Packet PER TUBE SCH (09:25)
[2022-06-29] MEDS: Enoxaparin Sodium 40 MG/0.4 ML SYRINGE SC SCH (21:05)
[2022-06-29] MEDS: Acetaminophen 325 MG TAB PO PRN (21:06)
[2022-06-30] MEDS: Piperacillin/Tazobactam 3.375 GM in Sodium Chloride 0.9% 100 ML IVPB SCH ×3 (03:50→20:15)
[2022-06-30 05:28] LABS: #Basophils 0.1 thou/uL (0.0-0.2); #Eosinphils 0.3 thou/uL (0.0-0.7); #Lymphocytes 1.5 thou/uL (1.20-3.40); #Monocytes 0.9 thou/uL (0.11-0.59); #Neutrophils 5.3 thou/uL (1.40-6.50); %Basophils 0.7 % (0.0-1.0); %Eosinophils 3.6 % (0.0-10.0); %Lymphocytes 18.4 % (21.0-51.0); %Monocytes 11.6 % (0.0-10.0); %Neutrophils 65.7 % (42.0-75.0); Hemoglobin 8.6 g/dL (14.0-18.0); Mean Corpuscular HGB CONC 31.4 g/dL (32.0-36.0); Mean Corpuscular Hemoglobin 26.2 pg (27.0-31.0); Mean Corpuscular Volume 83.4 fL (78.0-98.0); Mean Platelet Volume 6.4 fL (7.4-10.4); Platelet Count 394 thou/uL (130-400); RBC Distribution Width 15.2 % (11.5-14.5)
[2022-06-30 05:48] LABS: Anion Gap 12 mmol/L (10-20); BUN (Urea Nitrogen) 10 mg/dL (8.4-25.7); Calc. Creatinine Clearance 96 mL/min (70-130); Calcium 8.7 mg/dL (7.8-10.44); Carbon Dioxide 28 mmol/L (22-29); Chloride 99 mmol/L (98-107); Estimated GFR 107; Glucose 91 mg/dL (70-105); Magnesium 1.9 mg/dL (1.6-2.6); Sodium 135 mmol/L (136-145)
[2022-06-30] MEDS: HYDROcodone/Acetaminophen 5/325 mg Tablet PO PRN ×2 (09:52→22:02)
[2022-06-30] MEDS: Pantoprazole 40 MG VIAL IVP SCH (09:53)
[2022-06-30] MEDS: Polyethylene Glycol 3350 17 GM Packet PER TUBE SCH (09:53)
[2022-06-30] MEDS: Senokot S 8.6-50 MG TAB PER TUBE SCH ×2 (09:53→22:02)
[2022-06-30] MEDS: VANCOMYCIN 1.25 GM/250 ML BAG 1.25 GM in Premix Bag 1 BAG IVPB SCH (10:56)
[2022-06-30 21:06] LABS: Vancomycin, Trough 24.4 ug/mL
[2022-06-30] MEDS: Enoxaparin Sodium 40 MG/0.4 ML SYRINGE SC SCH (22:02)
[2022-07-01] MEDS: Vancomycin 1 GM in Premix Bag 1 BAG IVPB SCH ×2 (01:25→14:58)
[2022-07-01] MEDS: Morphine 4 MG/ML VIAL SLOW IVP PRN (01:32)
[2022-07-01] MEDS: Piperacillin/Tazobactam 3.375 GM in Sodium Chloride 0.9% 100 ML IVPB SCH ×3 (04:24→20:30)
[2022-07-01] MEDS: HYDROcodone/Acetaminophen 5/325 mg Tablet PO PRN ×3 (05:23→20:28)
[2022-07-01 05:56] LABS: #Eosinphils 0.2 thou/uL (0.0-0.7); #Lymphocytes 1.4 thou/uL (1.20-3.40); #Monocytes 1.1 thou/uL (0.11-0.59); #Neutrophils 5.9 thou/uL (1.40-6.50); %Basophils 0.2 % (0.0-1.0); %Eosinophils 2.6 % (0.0-10.0); %Lymphocytes 16.3 % (21.0-51.0); %Monocytes 12.9 % (0.0-10.0); %Neutrophils 67.9 % (42.0-75.0); Mean Corpuscular HGB CONC 30.6 g/dL (32.0-36.0); Mean Corpuscular Hemoglobin 26.2 pg (27.0-31.0); Mean Corpuscular Volume 85.7 fL (78.0-98.0); Mean Platelet Volume 6.8 fL (7.4-10.4); Platelet Count 471 thou/uL (130-400); RBC Distribution Width 15.7 % (11.5-14.5); Red Blood Cell (RBC) Count 3.42 mill/uL (4.70-6.10); White Blood Cell (WBC) Count 8.7 thou/uL (4.8-10.8)
[2022-07-01 06:16] LABS: Anion Gap 12 mmol/L (10-20); BUN (Urea Nitrogen) 8 mg/dL (8.4-25.7); Calc. Creatinine Clearance 99 mL/min (70-130); Calcium 8.6 mg/dL (7.8-10.44); Carbon Dioxide 27 mmol/L (22-29); Chloride 96 mmol/L (98-107); Estimated GFR 108; Glucose 107 mg/dL (70-105); Magnesium 1.9 mg/dL (1.6-2.6); Potassium 3.8 mmol/L (3.5-5.1); Sodium 131 mmol/L (136-145)
[2022-07-01] MEDS: Senokot S 8.6-50 MG TAB PER TUBE SCH ×2 (10:07→21:30)
[2022-07-01] MEDS: Polyethylene Glycol 3350 17 GM Packet PER TUBE SCH (10:08)
[2022-07-01] MEDS: Pantoprazole 40 MG VIAL IVP SCH (10:09)
[2022-07-01] MEDS ORDERED: HYDROcodone/Acetaminophen 10/325 mg Tablet PO PRN (14:42)
[2022-07-01] MEDS: Baclofen 10 MG TAB PER TUBE SCH ×2 (20:28→23:06)
[2022-07-01] MEDS: Enoxaparin Sodium 40 MG/0.4 ML SYRINGE SC SCH (20:28)
[2022-07-01] MEDS ORDERED: HYDROcodone/Acetaminophen 5/325 mg Tablet PO SCH (21:00)
[2022-07-01] MEDS ORDERED: Baclofen 10 MG TAB PO SCH (21:00)
[2022-07-02] MEDS: Vancomycin 1 GM in Premix Bag 1 BAG IVPB SCH (02:50)
[2022-07-02] MEDS: HYDROcodone/Acetaminophen 5/325 mg Tablet PO PRN ×2 (04:40→09:46)
[2022-07-02] MEDS: Piperacillin/Tazobactam 3.375 GM in Sodium Chloride 0.9% 100 ML IVPB SCH ×2 (04:57→21:14)
[2022-07-02 05:52] LABS: Anion Gap 13 mmol/L (10-20); BUN (Urea Nitrogen) 8 mg/dL (8.4-25.7); Calc. Creatinine Clearance 95 mL/min (70-130); Calcium 8.7 mg/dL (7.8-10.44); Carbon Dioxide 27 mmol/L (22-29); Chloride 99 mmol/L (98-107); Estimated GFR 106; Glucose 140 mg/dL (70-105); Magnesium 1.9 mg/dL (1.6-2.6); Potassium 3.7 mmol/L (3.5-5.1); Sodium 135 mmol/L (136-145)
[2022-07-02 07:04] LABS: Hemoglobin 8.5 g/dL (14.0-18.0); Mean Corpuscular HGB CONC 30.3 g/dL (32.0-36.0); Mean Corpuscular Hemoglobin 25.2 pg (27.0-31.0); Mean Platelet Volume 6.6 fL (7.4-10.4); Platelet Count 433 thou/uL (130-400); RBC Distribution Width 15.6 % (11.5-14.5); Red Blood Cell (RBC) Count 3.37 mill/uL (4.70-6.10); White Blood Cell (WBC) Count 8.8 thou/uL (4.8-10.8)
[2022-07-02 07:05] LABS: #Eosinphils 0.2 thou/uL (0.0-0.7); #Lymphocytes 1.5 thou/uL (1.20-3.40); #Neutrophils 6.1 thou/uL (1.40-6.50); %Basophils 0.3 % (0.0-1.0); %Eosinophils 2.4 % (0.0-10.0); %Lymphocytes 16.7 % (21.0-51.0); %Neutrophils 69.6 % (42.0-75.0); Anisocytosis SLIGHT = 6-15 cells (100X) (0-5/hpf); MDiff Complete? YES; Platelet Morphology Comment Appears Increased
[2022-07-02] MEDS ORDERED: Meropenem 1 GM in Sodium Chloride 0.9% 100 ML IVPB SCH ×2 (09:00→17:00)
[2022-07-02] MEDS: Baclofen 10 MG TAB PER TUBE SCH ×2 (09:36→16:32)
[2022-07-02] MEDS: Senokot S 8.6-50 MG TAB PER TUBE SCH ×2 (09:36→20:19)
[2022-07-02] MEDS: Polyethylene Glycol 3350 17 GM Packet PER TUBE SCH (09:37)
[2022-07-02] MEDS: Pantoprazole 40 MG VIAL IVP SCH ×2 (09:37→20:19)
[2022-07-02 13:23] LABS: Vancomycin, Trough 22.7 ug/mL
[2022-07-02] MEDS: Vancomycin HCl 750 MG in Sodium Chloride 0.9% 250 ML 250 ML IVPB SCH (15:55)
[2022-07-02 16:55] LABS: Hemoglobin 9.7 g/dL (14.0-18.0); Mean Corpuscular HGB CONC 31.7 g/dL (32.0-36.0); Mean Corpuscular Hemoglobin 26.1 pg (27.0-31.0); Mean Corpuscular Volume 82.5 fL (78.0-98.0); Mean Platelet Volume 6.3 fL (7.4-10.4); Platelet Count 488 thou/uL (130-400); RBC Distribution Width 15.6 % (11.5-14.5); Red Blood Cell (RBC) Count 3.73 mill/uL (4.70-6.10); White Blood Cell (WBC) Count 8.7 thou/uL (4.8-10.8)
[2022-07-02] MEDS ORDERED: Lorazepam 2 MG/ML VIAL SLOW IVP SCH (17:00)
[2022-07-02 17:12] LABS: ALT (SGPT) 11 U/L (8-55); AST (SGOT) 21 U/L (5-34); Albumin 3.1 g/dL (3.5-5.0); Alkaline Phosphatase 117 U/L (40-110); Anion Gap 11 mmol/L (10-20); BUN (Urea Nitrogen) 9 mg/dL (8.4-25.7); Bilirubin, Total 0.3 mg/dL (0.2-1.2); Calc. Creatinine Clearance 93 mL/min (70-130); Calcium 8.9 mg/dL (7.8-10.44); Carbon Dioxide 29 mmol/L (22-29); Chloride 100 mmol/L (98-107); Estimated GFR 106; Globulin 4.5 g/dL (2.4-3.5); Glucose 97 mg/dL (70-105); Protein, Total 7.6 g/dL (6.0-8.3); Sodium 136 mmol/L (136-145)
[2022-07-02 17:14] LABS: INR-International Normal Ratio 1.1; Prothrombin Time 14.8 sec (12.0-14.7)
[2022-07-02 17:15] LABS: PTT 37.3 sec (22.9-36.1)
[2022-07-02] MEDS ORDERED: Lorazepam 2 MG/ML VIAL SLOW IVP PRN (18:20)
[2022-07-02] MEDS ORDERED: Piperacillin/Tazobactam 3.375 GM in Sodium Chloride 0.9% 100 ML IVPB SCH (18:30)
[2022-07-02] MEDS ORDERED: levETIRAcetam 500 MG/5 ML VIAL SLOW IVP SCH (18:30)
[2022-07-03] MEDS: Vancomycin HCl 750 MG in Sodium Chloride 0.9% 250 ML 250 ML IVPB SCH ×2 (01:16→14:10)
[2022-07-03 05:25] LABS: #Eosinphils 0.2 thou/uL (0.0-0.7); #Lymphocytes 1.7 thou/uL (1.20-3.40); #Monocytes 1.1 thou/uL (0.11-0.59); #Neutrophils 6.3 thou/uL (1.40-6.50); %Basophils 0.1 % (0.0-1.0); %Monocytes 11.4 % (0.0-10.0); %Neutrophils 68.4 % (42.0-75.0); Hemoglobin 8.5 g/dL (14.0-18.0); Mean Corpuscular HGB CONC 30.9 g/dL (32.0-36.0); Mean Corpuscular Hemoglobin 25.5 pg (27.0-31.0); Mean Corpuscular Volume 82.5 fL (78.0-98.0); Mean Platelet Volume 6.5 fL (7.4-10.4); Platelet Count 477 thou/uL (130-400); RBC Distribution Width 15.8 % (11.5-14.5); Red Blood Cell (RBC) Count 3.33 mill/uL (4.70-6.10); White Blood Cell (WBC) Count 9.3 thou/uL (4.8-10.8)
[2022-07-03 05:40] LABS: Anion Gap 12 mmol/L (10-20); BUN (Urea Nitrogen) 8 mg/dL (8.4-25.7); Calc. Creatinine Clearance 95 mL/min (70-130); Calcium 8.8 mg/dL (7.8-10.44); Carbon Dioxide 27 mmol/L (22-29); Chloride 104 mmol/L (98-107); Estimated GFR 106; Glucose 92 mg/dL (70-105); Potassium 3.9 mmol/L (3.5-5.1); Sodium 139 mmol/L (136-145)
[2022-07-03] MEDS: Piperacillin/Tazobactam 3.375 GM in Sodium Chloride 0.9% 100 ML IVPB SCH ×3 (06:48→21:49)
[2022-07-03] MEDS: Sodium Chloride 0.9% 1,000 ML IV SCH ×2 (06:48→16:51)
[2022-07-03] MEDS: Senokot S 8.6-50 MG TAB PER TUBE SCH ×2 (08:20→21:47)
[2022-07-03] MEDS: levETIRAcetam 500 MG/5 ML VIAL SLOW IVP SCH ×2 (08:20→21:48)
[2022-07-03] MEDS: Polyethylene Glycol 3350 17 GM Packet PER TUBE SCH (08:21)
[2022-07-03] MEDS: Pantoprazole 40 MG VIAL IVP SCH ×2 (08:22→21:48)
[2022-07-03] MEDS: Morphine 4 MG/ML VIAL SLOW IVP PRN (12:32)
[2022-07-03] MEDS: HYDROcodone/Acetaminophen 5/325 mg Tablet PO PRN (21:47)
[2022-07-04 01:33] LABS: Vancomycin, Trough 18.4 ug/mL
[2022-07-04] MEDS: Vancomycin HCl 750 MG in Sodium Chloride 0.9% 250 ML 250 ML IVPB SCH ×2 (02:26→13:58)
[2022-07-04] MEDS: Sodium Chloride 0.9% 1,000 ML IV SCH ×3 (04:00→23:48)
[2022-07-04 05:19] LABS: #Eosinphils 0.2 thou/uL (0.0-0.7); #Lymphocytes 1.2 thou/uL (1.20-3.40); #Monocytes 1.1 thou/uL (0.11-0.59); #Neutrophils 8.2 thou/uL (1.40-6.50); %Basophils 0.1 % (0.0-1.0); %Eosinophils 1.4 % (0.0-10.0); %Lymphocytes 11.1 % (21.0-51.0); %Monocytes 10.8 % (0.0-10.0); %Neutrophils 76.6 % (42.0-75.0); Hemoglobin 9.3 g/dL (14.0-18.0); Mean Corpuscular HGB CONC 31.1 g/dL (32.0-36.0); Mean Corpuscular Hemoglobin 26.2 pg (27.0-31.0); Mean Corpuscular Volume 84.4 fL (78.0-98.0); Mean Platelet Volume 6.5 fL (7.4-10.4); Platelet Count 471 thou/uL (130-400); RBC Distribution Width 15.8 % (11.5-14.5); Red Blood Cell (RBC) Count 3.53 mill/uL (4.70-6.10); White Blood Cell (WBC) Count 10.6 thou/uL (4.8-10.8)
[2022-07-04 05:28] LABS: Anion Gap 14 mmol/L (10-20); BUN (Urea Nitrogen) 9 mg/dL (8.4-25.7); Calc. Creatinine Clearance 93 mL/min (70-130); Calcium 8.7 mg/dL (7.8-10.44); Carbon Dioxide 23 mmol/L (22-29); Chloride 106 mmol/L (98-107); Estimated GFR 106; Glucose 115 mg/dL (70-105); Magnesium 2.1 mg/dL (1.6-2.6); Sodium 139 mmol/L (136-145)
[2022-07-04] MEDS: Piperacillin/Tazobactam 3.375 GM in Sodium Chloride 0.9% 100 ML IVPB SCH ×3 (06:29→20:40)
[2022-07-04] MEDS: levETIRAcetam 500 MG/5 ML VIAL SLOW IVP SCH (08:15)
[2022-07-04] MEDS: Polyethylene Glycol 3350 17 GM Packet PER TUBE SCH (08:15)
[2022-07-04] MEDS: Senokot S 8.6-50 MG TAB PER TUBE SCH ×2 (08:15→20:40)
[2022-07-04] MEDS: Pantoprazole 40 MG VIAL IVP SCH ×2 (08:15→20:39)
[2022-07-04] MEDS: Morphine 4 MG/ML VIAL SLOW IVP PRN ×2 (13:59→20:37)
[2022-07-04] MEDS: Acetaminophen 325 MG TAB PO PRN (20:39)
[2022-07-04] MEDS: levETIRAcetam 500 mg/5 ml Oral Solution PO SCH (20:40)
[2022-07-05] MEDS: Vancomycin HCl 750 MG in Sodium Chloride 0.9% 250 ML 250 ML IVPB SCH ×2 (02:02→14:28)
[2022-07-05] MEDS: Piperacillin/Tazobactam 3.375 GM in Sodium Chloride 0.9% 100 ML IVPB SCH ×3 (05:23→21:00)
[2022-07-05 05:46] LABS: Anion Gap 14 mmol/L (10-20); BUN (Urea Nitrogen) 8 mg/dL (8.4-25.7); Calc. Creatinine Clearance 103 mL/min (70-130); Calcium 8.6 mg/dL (7.8-10.44); Carbon Dioxide 22 mmol/L (22-29); Chloride 106 mmol/L (98-107); Estimated GFR 109; Glucose 97 mg/dL (70-105); Potassium 4.3 mmol/L (3.5-5.1); Sodium 138 mmol/L (136-145)
[2022-07-05 06:32] LABS: Band 2 % (5-11); Eosinophils 2 % (0-10); Hemoglobin 9.6 g/dL (14.0-18.0); Hypochromia SLIGHT = 6-15 cells (100X) (0-5/hpf); Lymphocytes 9 % (21-51); MDiff Complete? YES; Mean Corpuscular HGB CONC 30.3 g/dL (32.0-36.0); Mean Corpuscular Hemoglobin 25.8 pg (27.0-31.0); Mean Corpuscular Volume 85.1 fL (78.0-98.0); Mean Platelet Volume 6.4 fL (7.4-10.4); Monocytes 13 % (0-10); Neutrophil 74 % (42-75); Platelet Count 509 thou/uL (130-400); Platelet Morphology Comment Appears Increased; Polychromasia SLIGHT = 2-3 cells (100X) (0-2/hpf); Red Blood Cell (RBC) Count 3.74 mill/uL (4.70-6.10); White Blood Cell (WBC) Count 11.8 thou/uL (4.8-10.8)
[2022-07-05] MEDS: Polyethylene Glycol 3350 17 GM Packet PER TUBE SCH (08:05)
[2022-07-05] MEDS: levETIRAcetam 500 mg/5 ml Oral Solution PO SCH ×2 (08:05→20:19)
[2022-07-05] MEDS: Senokot S 8.6-50 MG TAB PER TUBE SCH ×2 (08:05→20:19)
[2022-07-05] MEDS: Pantoprazole 40 MG VIAL IVP SCH ×2 (08:06→21:00)
[2022-07-05] MEDS: Sodium Chloride 0.9% 1,000 ML IV SCH ×2 (08:08→18:20)
[2022-07-05 14:07] LABS: Vancomycin, Trough 17.9 ug/mL
[2022-07-05] MEDS: Acetaminophen 325 MG TAB PO PRN (15:51)
[2022-07-05 20:15] LABS: #Eosinphils 0.2 thou/uL (0.0-0.7); #Lymphocytes 1.3 thou/uL (1.20-3.40); #Monocytes 0.9 thou/uL (0.11-0.59); #Neutrophils 6.4 thou/uL (1.40-6.50); %Eosinophils 2.7 % (0.0-10.0); %Monocytes 10.5 % (0.0-10.0); %Neutrophils 71.8 % (42.0-75.0); Hemoglobin 7.3 g/dL (14.0-18.0); Mean Corpuscular HGB CONC 30.9 g/dL (32.0-36.0); Mean Corpuscular Hemoglobin 25.5 pg (27.0-31.0); Mean Corpuscular Volume 82.6 fL (78.0-98.0); Mean Platelet Volume 6.7 fL (7.4-10.4); Platelet Count 509 thou/uL (130-400); RBC Distribution Width 15.9 % (11.5-14.5); Red Blood Cell (RBC) Count 2.87 mill/uL (4.70-6.10); White Blood Cell (WBC) Count 8.9 thou/uL (4.8-10.8)
[2022-07-05] MEDS: levETIRAcetam 500 MG/5 ML VIAL SLOW IVP SCH (20:59)
[2022-07-05] MEDS ORDERED: levETIRAcetam in NS 500 MG in Premix Bag 1 BAG IVPB SCH (21:00)
[2022-07-06 01:31] LABS: #Eosinphils 0.2 thou/uL (0.0-0.7); #Lymphocytes 1.6 thou/uL (1.20-3.40); #Monocytes 0.8 thou/uL (0.11-0.59); #Neutrophils 5.2 thou/uL (1.40-6.50); %Basophils 0.2 % (0.0-1.0); %Lymphocytes 20.4 % (21.0-51.0); %Monocytes 10.1 % (0.0-10.0); %Neutrophils 66.3 % (42.0-75.0); Hemoglobin 6.1 g/dL (14.0-18.0); Mean Corpuscular HGB CONC 31.1 g/dL (32.0-36.0); Mean Corpuscular Hemoglobin 25.6 pg (27.0-31.0); Mean Corpuscular Volume 82.2 fL (78.0-98.0); Mean Platelet Volume 6.2 fL (7.4-10.4); Platelet Count 399 thou/uL (130-400); RBC Distribution Width 15.8 % (11.5-14.5); Red Blood Cell (RBC) Count 2.39 mill/uL (4.70-6.10); White Blood Cell (WBC) Count 7.9 thou/uL (4.8-10.8)
[2022-07-06] MEDS: Vancomycin HCl 750 MG in Sodium Chloride 0.9% 250 ML 250 ML IVPB SCH (02:02)
[2022-07-06 02:37] LABS: Hemoglobin 6.4 g/dL (14.0-18.0)
[2022-07-06] MEDS ORDERED: Pantoprazole 40 MG VIAL IVP SCH (04:30)
[2022-07-06 05:27] LABS: Hemoglobin 7.9 g/dL (14.0-18.0)
[2022-07-06 05:30] VITALS: TEMP 98.1
[2022-07-06] MEDS: Piperacillin/Tazobactam 3.375 GM in Sodium Chloride 0.9% 100 ML IVPB SCH (06:18)
[2022-07-06] MEDS: Sodium Chloride 0.9% 1,000 ML IV SCH (06:18)
[2022-07-06 09:10] LABS: Hemoglobin 6.9 g/dL (14.0-18.0)
[2022-07-06] MEDS: Polyethylene Glycol 3350 17 GM Packet PER TUBE SCH (10:03)
[2022-07-06] MEDS: Senokot S 8.6-50 MG TAB PER TUBE SCH (10:06)
[2022-07-06] MEDS: Pantoprazole 40 MG VIAL IVP SCH (10:12)
[2022-07-06] MEDS: levETIRAcetam 500 MG/5 ML VIAL SLOW IVP SCH (10:12)
[2022-07-06] MEDS: Morphine 4 MG/ML VIAL SLOW IVP PRN (10:13)
[2022-07-06 13:53] VITALS: BP 67/58
== END 2022-07-06 13:46 | disposition hospice, inpatient (51) | DRG 539 ==
LOC: ERS 05:45 → NEURO 12:41 → OBSVTOIN 06-26 15:43
PROVIDERS: ADMIT Internal Medicine; ATTEND Internal Medicine
PROC: 30233N1 Transfusion of Nonautologous Red Blood Cells into Peripheral Vein, Percutaneous Approach (ICD-10-PCS; principal; 2022-07-06)
DX: M86.8X8 Other osteomyelitis, other site (principal); Z66 Do not resuscitate; Z51.5 Encounter for palliative care; Z20.822 Contact with and (suspected) exposure to COVID-19; L89.893 Pressure ulcer of other site, stage 3; R53.2 Functional quadriplegia; M00.9 Pyogenic arthritis, unspecified; E44.0 Moderate protein-calorie malnutrition; R47.01 Aphasia; N39.0 Urinary tract infection, site not specified; K94.21 Gastrostomy hemorrhage; R56.9 Unspecified convulsions; R13.10 Dysphagia, unspecified; R79.89 Other specified abnormal findings of blood chemistry; K59.00 Constipation, unspecified; R10.9 Unspecified abdominal pain; M24.50 Contracture, unspecified joint; G89.4 Chronic pain syndrome; F41.9 Anxiety disorder, unspecified; F09 Unspecified mental disorder due to known physiological condition; Y83.3 Surgical operation with formation of external stoma as the cause of abnormal reaction of the patient, or of later complication, without mention of misadventure at the time of the procedure; Z28.21 Immunization not carried out because of patient refusal; Z68.21 Body mass index [BMI] 21.0-21.9, adult; Z86.73 Personal history of transient ischemic attack (TIA), and cerebral infarction without residual deficits; Z74.01 Bed confinement status; Z79.899 Other long term (current) drug therapy
CPT/HCPCS: 36415; 36416; 36430; 70450; 71045; 71275; 74177; 80048; 80053; 80076; 80202; 81003; 81015; 82805; 83605; 83735; 84484; 85025; 85379; 85610; 85730; 86140; 86850; 86900; 86901; 87040; 87070; 87077; 87081; 87086; 87186; 87205; 87811; 93005; 93010; 93306; 95712; 95819; 95957; 96372; 96374; 96375; 96376; 97139; C9113; G0378; J0692; J1650; J1953; J2060; J2185; J2270; J2543; J3370; J3490; J7042; J7050; P9016; Q9967; U0002

== ENCOUNTER 2022-07-06 13:52 | Inpatient (IN) | payer OTHER ==
[2022-07-06] MEDS ORDERED: Lorazepam 2 MG/ML VIAL SLOW IVP SCH (14:45)
[2022-07-06] MEDS ORDERED: Morphine 2 MG/ML VIAL SLOW IVP SCH (14:45)
[2022-07-06] MEDS ORDERED: Morphine 4 MG/ML VIAL SLOW IVP SCH ×2 (16:30→17:00)
[2022-07-06] MEDS: Morphine 4 MG/ML VIAL SLOW IVP SCH ×4 (16:56→23:08)
[2022-07-06] MEDS: Lorazepam 2 MG/ML VIAL SLOW IVP SCH ×2 (16:58→21:05)
[2022-07-06 18:49] VITALS: BMI 19.4
[2022-07-07] MEDS: Lorazepam 2 MG/ML VIAL SLOW IVP SCH ×6 (01:40→20:57)
[2022-07-07] MEDS: Morphine 4 MG/ML VIAL SLOW IVP SCH ×12 (02:24→22:53)
[2022-07-07] MEDS ORDERED: Acetaminophen 650 MG Suppository PR PRN (10:11)
[2022-07-07] MEDS: Acetaminophen 325 MG Suppository PR PRN (16:49)
[2022-07-08] MEDS: Morphine 4 MG/ML VIAL SLOW IVP SCH ×12 (01:20→23:03)
[2022-07-08] MEDS: Lorazepam 2 MG/ML VIAL SLOW IVP SCH ×6 (01:20→21:10)
[2022-07-09] MEDS: Lorazepam 2 MG/ML VIAL SLOW IVP SCH ×5 (00:54→17:15)
[2022-07-09] MEDS: Morphine 4 MG/ML VIAL SLOW IVP SCH ×9 (00:54→17:15)
[2022-07-09] MEDS ORDERED: Lorazepam 2 MG/ML VIAL SLOW IVP PRN (18:18)
[2022-07-09] MEDS: Morphine 4 MG/ML VIAL SLOW IVP PRN (18:50)
[2022-07-09] MEDS: LORAZEPAM 2 MG/ML SL SCH (22:26)
[2022-07-09] MEDS: MORPHINE SULFATE 20 MG/ML SL SCH ×2 (22:26→23:58)
[2022-07-10] MEDS: LORAZEPAM 2 MG/ML SL SCH ×4 (01:00→13:03)
[2022-07-10] MEDS: MORPHINE SULFATE 20 MG/ML SL SCH ×8 (02:13→18:13)
[2022-07-10] MEDS ORDERED: Lorazepam 2 MG/ML VIAL SLOW IVP PRN (16:55)
[2022-07-10] MEDS: Morphine 4 MG/ML VIAL SLOW IVP PRN (17:00)
[2022-07-10] MEDS: Acetaminophen 325 MG Suppository PR PRN (17:05)
[2022-07-10] MEDS: Lorazepam 2 MG/ML VIAL SLOW IVP SCH ×2 (17:44→21:22)
[2022-07-10] MEDS: Morphine 4 MG/ML VIAL SLOW IVP SCH ×3 (18:12→22:14)
[2022-07-11] MEDS: Morphine 4 MG/ML VIAL SLOW IVP SCH ×12 (00:01→22:30)
[2022-07-11] MEDS: Lorazepam 2 MG/ML VIAL SLOW IVP SCH ×6 (01:44→20:39)
[2022-07-12] MEDS: Lorazepam 2 MG/ML VIAL SLOW IVP SCH ×3 (00:05→10:03)
[2022-07-12] MEDS: Morphine 4 MG/ML VIAL SLOW IVP SCH ×7 (00:05→12:24)
[2022-07-12] MEDS: Morphine 4 MG/ML VIAL SLOW IVP PRN (10:18)
[2022-07-14 10:54] VITALS: TEMP 98.5
[2022-07-14 11:05] VITALS: BP 95/55
== END 2022-07-12 13:30 | disposition expired | DRG 951 ==
LOC: NEURO 13:52 → MSONC 07-09 20:20
PROVIDERS: ADMIT Family Medicine; ATTEND Internal Medicine
DX: Z51.5 Encounter for palliative care (principal); Z66 Do not resuscitate; A41.9 Sepsis, unspecified organism; K94.23 Gastrostomy malfunction; E46 Unspecified protein-calorie malnutrition; Z68.1 Body mass index [BMI] 19.9 or less, adult; G89.4 Chronic pain syndrome; F41.9 Anxiety disorder, unspecified; R79.89 Other specified abnormal findings of blood chemistry; Y83.2 Surgical operation with anastomosis, bypass or graft as the cause of abnormal reaction of the patient, or of later complication, without mention of misadventure at the time of the procedure; D69.6 Thrombocytopenia, unspecified; Z87.820 Personal history of traumatic brain injury; Z79.899 Other long term (current) drug therapy
CPT/HCPCS: J2060; J2270